=== PATIENT | male | born 1990 | race Hispanic/Latino ===

== ENCOUNTER 2017-01-01 13:28 | Emergency (ER) | payer SELFPAY ==
[2017-01-01 14:08] LABS: #Basophils 0.1 thou/uL (0.0-0.2); #Eosinphils 0.1 thou/uL (0.0-0.7); #Monocytes 0.7 thou/uL (0.11-0.59); #Neutrophils 6.7 thou/uL (1.40-6.50); %Eosinophils 0.8 % (0.0-10.0); %Lymphocytes 12.1 % (21.0-51.0); %Monocytes 8.1 % (0.0-10.0); Hematocrit 45.7 % (42.0-52.0); Mean Platelet Volume 5.8 fL (7.4-10.4); Red Blood Cell (RBC) Count 5.34 mill/uL (4.70-6.10); White Blood Cell (WBC) Count 8.6 thou/uL (4.8-10.8)
--- NOTE | 2017-01-01 14:24 | RAD ---
TWO VIEWS OF CHEST: Date: 01-01-17 Comparison: None. History: Low back and abdominal pain with nauseas. FINDINGS: No pneumothorax, pleural fluid, focal consolidation or alveolar edema. Heart and mediastinal contour s appear within normal limits. IMPRESSION: No acute findings. POS: [facility]
[2017-01-01 14:26] LABS: ALT (SGPT) 16 U/L (8-55); AST (SGOT) 13 U/L (5-34); Alkaline Phosphatase 67 U/L (40-150); Anion Gap 13 mmol/L (10-20); BUN (Urea Nitrogen) 13 mg/dL (8.9-20.6); Bilirubin, Total 0.6 mg/dL (0.2-1.2); CK (CPK) 68 U/L (30-200); Calc. Creatinine Clearance 0 mL/min (70-130); Carbon Dioxide 24 mmol/L (22-29); Chloride 104 mmol/L (98-107); Estimated GFR-MDRD Greater than 90; Protein, Total 7.2 g/dL (6.0-8.3)
[2017-01-01 14:28] LABS: Troponin I Less than 0.010 ng/mL (< 0.028)
[2017-01-01 14:29] LABS: Bilirubin Negative (Negative); Blood, Urine Trace (Negative); Glucose, Urine (Dipstick) Negative (Negative); Ketone, Urine Negative (Negative); Nitrite Negative (Negative); Protein, Urine (Dipstick) Negative (Neg-Trace)
--- NOTE | 2017-01-01 14:29 | CT ---
HEAD CT WITHOUT CONTRAST: Date: 01-01-17 Comparison: None. History: Abdominal pain, back pain, nausea, headache. Technique: Serial axial CT imaging at 4.8 mm intervals from vertex through skull base without contra st. FINDINGS: Imaged paranasal sinuses/mastoid air cells are well aerated. No displaced calvarial fracture. No int racranial hemorrhage, midline shift, mass effect, or ventricular enlargement. IMPRESSION: No acute findings. POS: [facility]
[2017-01-01 14:39] LABS: Bacteria/HPF 2+ HPF (None Seen); RBC/HPF 0-3 HPF (0-3); Squamous Epithelial 0-3 HPF (0-3); WBC/HPF None Seen HPF (0-3)
[2017-01-01] MEDS ORDERED: Ketorolac Tromethamine 30 MG/ML VIAL ONE (14:49)
== END 2017-01-01 15:19 | disposition home or self-care (01) ==
LOC: SCSER 13:28
DX: B34.9 Viral infection, unspecified (principal)
CPT/HCPCS: 70450; 71020; 80053; 81003; 81015; 82553; 83880; 84484; 85025; 87040; 87081; 87430; 93005; 96361; 96374; J1885